=== PATIENT | female | born 1980 | race Caucasian/White ===

== ENCOUNTER 2017-01-06 12:57 | Emergency (ER) | payer OTHER ==
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
[2017-01-06] MEDS ORDERED: MOTRIN PO ONE (19:05)
[2017-01-06 19:30] VITALS: BP 120/76
== END 2017-01-06 19:30 | disposition home or self-care (01) ==
LOC: ED 12:57
DX: R07.89 Other chest pain (principal); M25.512 Pain in left shoulder; V89.2XXA Person injured in unspecified motor-vehicle accident, traffic, initial encounter; Y93.89 Activity, other specified; Y99.8 Other external cause status; Y92.488 Other paved roadways as the place of occurrence of the external cause
CPT/HCPCS: 71020; 81025